=== PATIENT | female | born 1985 | race Two or more races ===

== ENCOUNTER 2024-08-07 09:26 | Emergency (ER) | payer MEDICAID, SELFPAY ==
[2024-08-07 09:41] VITALS: BP 144/89; PULSE 74; RESP 18; TEMP 37.1; O2SAT 96; BMI 35.8
[2024-08-07] MEDS: KETOROLAC INJ 30 MG/ML VIAL IM (10:17)
--- NOTE | 2024-08-07 12:49 | PD.EDEXREM ---
ED Extremity Problem RME/HPI General Chief complaint: Extremity Problem,Nontraumatic Stated complaint: LEFT LEG, HIP, KNEE PAIN WORSEN X 1 WK; SEEN PCP Time Seen by Provider: 08/07/24 09:30 Arrival date/time: 08/07/24 09:26 39-year-old female presents to the emergency department complaints of left leg pain patient reports pain starts in her left hip and radiates down her left leg patient reports typically she takes naproxen but ran out of her medication patient reports no fever nausea or vomiting no saddle anesthesia no loss of bowel or bladder no chance of Limitations: no limitations Related Data Home Medications ?Medication ?Instructions ?Recorded ?Confirmed citalopram 40 mg tablet (Celexa) 40 mg PO QDAY #0 tabs 08/20/17 05/10/22 trazodone 100 mg tablet 100 mg PO HS 05/10/22 05/10/22 Previous Rx's ?Medication ?Instructions ?Recorded naproxen 500 mg tablet (Naprosyn) 500 mg PO BID #14 tabs 05/10/22 phenazopyridine 95 mg tablet (Azo 95 mg PO TID PRN pain 6 doses #6 05/10/22 Urinary Pain Relief) tabs benzonatate 100 mg capsule 100 mg PO TID #14 caps 02/02/24 ibuprofen 600 mg tablet 600 mg PO Q6H #30 tabs 02/02/24 cyclobenzaprine 10 mg tablet 10 mg PO TID PRN muscle spasm 10 08/07/24 days #30 tab-caps naproxen 500 mg tablet 500 mg PO BID PRN pain #30 tabs 08/07/24 Allergies Allergy/AdvReac Type Severity Reaction Status Date / Time NKA* Allergy Uncoded 08/07/24 09:29 Review of Systems Review of Systems Systems Reviewed: All systems reviewed, normal except as documented Constitutional Constitutional: Reports system reviewed and no additional complaints, except as documented, Denies fever(s) and Denies headache(s) Eyes Eyes: Reports system reviewed and no additional complaints, except as documented and Denies blurry vision ENT Ears, Nose, Mouth, and Throat: Reports system reviewed and no additional complaints, except as documented, Denies headache(s), Denies nasal congestion and Denies nasal discharge Cardiovascular Cardiovascular: Reports system reviewed and no additional complaints, except as documented, Denies chest pain and Denies dyspnea Respiratory Respiratory: Reports system reviewed and no additional complaints, except as documented, Denies chest congestion, Denies cough and Denies dyspnea Gastrointestinal Gastrointestinal: Reports system reviewed and no additional complaints, except as documented and Denies abdominal pain Musculoskeletal Musculoskeletal: Reports system reviewed and no additional complaints, except as documented, Denies abnormal gait, Denies arthralgias, Reports back pain, Reports radiating pain into limb, Reports stiffness and Denies tingling Integumentary/Breasts Skin/Breast: Reports system reviewed and no additional complaints, except as documented and Denies rash Neurologic Neurologic: Reports system reviewed and no additional complaints, except as documented, Reports as per HPI, Denies abnormal gait, Denies headache(s) and Denies tingling Past Medical History Past Medical History CARDIAC: Negative Congestive Heart Failure RESPIRATORY: Negative Chronic Obstructive Pulmonary Disease (COPD) GENITOURINARY: Negative Renal Disease ENDOCRINE: Negative Diabetes Mellitus Type 1 or Diabetes Mellitus Type 2 OTHER HISTORY: Negative Blood Transfusions Social History SMOKING STATUS: Never smoker ED Exam General Limitations: Present no limitations General appearance: Present alert and in no apparent distress Head Head exam: Present atraumatic, normocephalic and normal inspection Eye Eye exam: Present normal appearance, PERRL and EOMI ENT ENT exam: Present normal exam, normal oropharynx and mucous membranes moist Neck Neck exam: Present normal inspection, full ROM and trachea midline Chest Chest inspection: Present normal inspection and symmetric chest wall rise Respiratory Respiratory exam: Present normal lung sounds bilaterally Cardiovascular Cardiovascular exam: Present regular rate, normal rhythm and normal heart sounds Abdominal Exam Abdominal exam: Present soft and normal bowel sounds Extremities Exam Extremities exam: Present full ROM, tenderness and normal capillary refill; Absent joint swelling Back Exam Back exam: Present normal inspection and full ROM Neurological Exam Neurological exam: Present alert, oriented X3, CN II-XII intact, normal gait and reflexes normal; Absent motor sensory deficit Psychiatric Psychiatric exam: Present normal affect and normal mood Skin Skin exam: Present warm, dry, intact and normal color; Absent rash Course Quality Measures none Orders Category Date Time Status Ketorolac Inj [Toradol Inj] Med 08/07/24 10:07 Discontinued 30 mg IM X1 ONE Vital Signs Vital signs: Vital Signs Temperature 98.8 F 08/07/24 09:41 Pulse Rate 74 08/07/24 09:41 Respiratory Rate 18 08/07/24 09:41 Blood Pressure 144/89 H 08/07/24 09:41 Pulse Oximetry (%) 96 08/07/24 09:41 Oxygen Delivery Method Room Air 08/07/24 09:41 O2 saturation 96% room air within normal limits Extremity Problem MDM Narrative [facility] Narrative:: 39-year-old female presents to the emergency department complaints of left leg pain patient reports pain starts in her left hip and radiates down her left leg patient reports typically she takes naproxen but ran out of her medication patient reports no fever nausea or vomiting no saddle anesthesia no loss of bowel or bladder no chance of Patient medicated for pain Symptoms highly consistent with sciatica Patient discharged home in no distress to follow-up with primary care doctor in the next 24 to 48 hours and for any worsening symptoms to return to the ER immediately Patient data External records reviewed:: [facility] previous records Clinical information provided by:: patient Social determinants that could affect healthcare access:: none Patient has the following chronic illnesses:: See history How is presenting disease/condition affected by chronic disease/condition?: caused by Evaluation data The following diagnostics were reviewed and interpreted by me:: other (specify) (N/A) Lab and/or radiology exams considered but not ordered:: Consider not indicated Interpretation Summary: N/A Medications / Prescriptions Medications or Prescriptions considered but not ordered:: Given Medication administrations:: Medication Administration History Discontinued Medications Ketorolac Tromethamine (Ketorolac Inj 30 Mg/Ml Vial) 30 mg IM X1 ONE Stop: 08/07/24 10:08 Last Admin: 08/07/24 10:17 Dose: 30 mg Documented By: RD Given Consultations Consultation(s) initiated? (list below): No Diagnosis Extremity Problem Differential Diagnosis: other (Sciatica, back pain, leg pain) Most likely diagnosis given after review of the tests above:: Sciatica Admission Indicated Admission indicated?: not indicated Admission Request Was there a request for admission?: No Disposition Plan Disposition Plan: Discharge Discharge Attestation Discharge Attestation: The patient and all family members were given an opportunity to ask questions and understood the discharge instructions. Discharge instructions specifically effects, indications for sooner follow up or return to the emergency department, and the expected course of current diagnosis. Patient condition: Stable Discharge Plan Plan Patient Disposition: HOME (Self Care) Disposition Comment: Stable Prescriptions/Referrals Prescriptions/Med Rec: New cyclobenzaprine 10 mg tablet 10 mg PO TID PRN (Reason: muscle spasm) 10 Days Qty: 30 0RF naproxen 500 mg tablet 500 mg PO BID PRN (Reason: pain) Qty: 30 0RF No Action citalopram [Celexa] 40 MG tablet 40 mg PO QDAY Qty: 0 trazodone 100 mg tablet 100 mg PO HS Patient Comments: TAKE 1 TABLET BY MOUTH ONCE DAILY AT BEDTIME phenazopyridine [Azo Urinary Pain Relief] 95 mg tablet 95 mg PO TID PRN (Reason: pain) Qty: 6 0RF naproxen [Naprosyn] 500 mg tablet 500 mg PO BID Qty: 14 0RF benzonatate 100 mg capsule 100 mg PO TID Qty: 14 0RF ibuprofen 600 mg tablet 600 mg PO Q6H Qty: 30 0RF Problem List Clinical Impression: Left sided sciatica Patient/Caregiver Discharge Instructions Education Materials: ED Sciatica Additional Instructions: Please follow-up department care doctor as discussed worsening symptoms return immediately Print Language: Moroccan Stand Alone Forms: Elizabeth Award Info., Work/School Release, Patient Portal Info Letter PA/BEEHIVE KILN SUPERVISOR Supervising Physician PA/BEEHIVE KILN SUPERVISOR Supervising Physician: Dr. Salamanca
== END 2024-08-07 10:22 | disposition home or self-care (01) ==
LOC: SERX 10:27
PROVIDERS: Emergency Provider Emergency Medicine; PCP Family Medicine
DX: M54.32 Sciatica, left side (principal); Z91.148 Patient's other noncompliance with medication regimen for other reason
CPT/HCPCS: 96372; 99283; J1885

== ENCOUNTER 2024-09-19 16:00 | Emergency (ER) | payer MEDICAID, SELFPAY ==
[2024-09-19 16:28] VITALS: BP 115/80; PULSE 106; RESP 18; TEMP 37.2; O2SAT 95; BMI 35.2
--- NOTE | 2024-09-19 16:42 | XR_ITS ---
Examination: CT abdomen and pelvis without contrast. Coronal 3-D reconstructions. Sagittal 2-D reconstructions. Date and time of exam:September 19, 2024 at 1752 hrs. Indications: Right-sided abdominal pain with vomiting today CTDI: vol (mGy): 11.3 DLP: (mGycm): 570 Technique: Axial images of the abdomen have been obtained, 3 mm slice thickness Intravenous contrast material has not been administered. Low dose protocols were performed. One or more of the following dose reduction techniques were used; automated exposure control, adjustment of the mA and/or KV according to patient size, use of iterative reconstruction technique. Findings: No focal liver or splenic lesions Absent gallbladder No pancreatic mass or edema 1 mm adjacent 1 mm lower pole right renal calculi coronal image 95 Aorta normal size Normal appendix No bowel obstruction No diverticulitis Contracted urinary bladder Anteverted uterus with significantly dilated endometrial stripe Advanced degenerative disc disease L5-S1 Impression: Tiny nonobstructing right renal calculi Normal appendix Advanced degenerative disc disease L5-S1 Significantly thickened endometrial stripe, at least 19 mm, consider pelvic sonography follow-up
--- NOTE | 2024-09-19 16:43 | PD.EDRME ---
Rapid Medical Screening Exam RME Arrival date/time: 09/19/24 16:00 39-year-old female with no known medical history presents to the emergency room with a chief complaint of 8 out of 10 epigastric pain x 2 days I have greeted and performed a focused initial assessment of this patient. A comprehensive ED assessment and evaluation of the patient, analysis of all test results, and completion of the medical decision making process will be conducted by additional ED providers. Chief Complaint: Abdominal Pain Vital signs: Vital Signs Temperature 99 F 09/19/24 16:28 Pulse Rate 106 H 09/19/24 16:28 Respiratory Rate 18 09/19/24 16:28 Blood Pressure 115/80 09/19/24 16:28 Pulse Oximetry (%) 95 09/19/24 16:28 Oxygen Delivery Method Room Air 09/19/24 16:28 Vital signs reviewed by provider: Yes
[2024-09-19 17:08] LABS: Basophils % (Auto) 0 % (0-2.5); Eosinophils % (Auto) 0 % (0-10); Hematocrit 36.9 % (36.0-46.0); Hemoglobin 12.5 g/dL (12.0-16.0); Immature Granulocytes % (Auto) 0 % (0-0); Immature Granulocytes Auto 0.01 Thou/mm3 (0.00-0.00); Lymphocytes # (Auto) 0.4 Thou/mm3 (1.0-4.8); Lymphocytes % (Auto) 5 % (10-50); Mean Corpuscular HGB Conc 33.9 g/dl (31.0-37.0); Mean Corpuscular Volume 80 fL (80-100); Monocytes # (Auto) 0.4 Thou/mm3 (0.0-0.8); Monocytes % (Auto) 5 % (0-12); Neutrophils # (Auto) 6.9 Thou/mm3 (1.8-7.7); Neutrophils % (Auto) 89 % (37-80); Nucleated Red Blood Cell % 0 /100 WBC (0); Platelet Count 243 Thou/mm3 (140-440); RDW Standard Deviation 39.8 fL (36.4-46.3); Red Blood Count 4.63 Miln/mm3 (4.00-5.20); White Blood Count 7.7 Thou/mm3 (3.6-11.0)
[2024-09-19] MEDS: MG HYD/AL HYD/SIME (Maalox Reg) SUSP 30 ML UDC PO ×2 (17:14→19:27)
[2024-09-19 17:20] LABS: Collection Type, Urine Clean Catch
[2024-09-19 17:23] LABS: Alanine Aminotransferase 17 U/L (10-49); Albumin, Serum 4.5 gm/dL (3.5-5.0); Albumin/Globulin Ratio 1.8 (1.2-2.2); Alkaline Phosphatase 59 U/L (46-116); Anion Gap 10 (7-16); Aspartate Amino Transferase 17 U/L (0-34); BUN/Creatinine Ratio 30 Ratio (12-20); Bilirubin,Total 0.9 mg/dL (0.3-1.2); Blood Urea Nitrogen 15 mg/dL (9-23); Calcium 9.4 mg/dL (8.3-10.6); Calcium (Corrected) 9.4 mg/dL (8.5-10.1); Chloride 106 mMol/L (98-107); Creatinine (Component) 0.5 mg/dL (0.6-1.3); Estimated Creatinine Clearance 157.8 mL/min (>60); Globulin 2.5 gm/dL (2.3-3.5); Glucose 116 mg/dL (74-106); Lipase 24 U/L (12-53); Osmolality,Calculated 279 (275-295); Potassium 3.6 mMol/L (3.4-5.1); Sodium 139 mMol/L (136-145); eGFR > 60 See Note
[2024-09-19 17:33] LABS: Bacteria,Urine Rare; Bilirubin,Urine Negative (Negative); Blood,Urine Negative (Negative); Clarity,Urine Turbid (Clear/Hazy); Color,Urine Yellow (Lt Yel-Yel); Glucose, Urine Negative (Negative); HCG Qualitative,Urine Negative; Ketones,Urine 2+ (Negative); Leukocyte Esterase,Urine Negative (Negative); Nitrite,Urine Negative (Negative); PH,Urine 6.5 (5.0-7.0); Protein,Urine 1+ (Neg - Trace); RBC,Urine 1 /hpf (0-3); Specific Gravity,Urine 1.032 (1.001-1.035); Squamous Epithelial Cell,Urine 13 /hpf (0-5); Urobilinogen,Urine Negative mg/dL (0.0-1.0); WBC,Urine 1 /hpf (0-5)
[2024-09-19 19:14] VITALS: BP 117/81; PULSE 99; RESP 16; TEMP 36.9; O2SAT 99
--- NOTE | 2024-09-19 19:19 | EDNOTE_ITS ---
<Statement entered by Melissa Ayala MD - 09/21/24 01:47> As co-signing physician, I was present and available for consult prn. I concur with the plan and care as documented by the midlevel provider. ED General RME/HPI General Chief complaint: Abdominal Pain Stated complaint: RIGHT ABD PAIN WITH VOMITING X 7 DAYS Time Seen by Provider: 09/19/24 19:49 Arrival date/time: 09/19/24 16:00 CC: Epigastric pain HPI ongoing for the past 3 to 4 days with nausea and vomiting currently nauseated. Denies any diarrhea. Prior history of similar events at that time the patient had a cholecystectomy. Denies chest pain shortness of breath difficulty breathing or fever. Localized pain is 8 on a 10 scale. However the patient is active upright speaking in full sentences not writhing with stable vital signs. RME / HPI RME / HPI narrative: 09/19/24 16:00 39-year-old female with no known medical history presents to the emergency room with a chief complaint of 8 out of 10 epigastric pain x 2 days I have greeted and performed a focused initial assessment of this patient. A comprehensive ED assessment and evaluation of the patient, analysis of all test results, and completion of the medical decision making process will be conducted by additional ED providers. Related Data Home Medications ?Medication ?Instructions ?Recorded ?Confirmed citalopram 40 mg tablet (Celexa) 40 mg PO QDAY #0 tabs 08/20/17 05/10/22 trazodone 100 mg tablet 100 mg PO HS 05/10/22 Previous Rx's ?Medication ?Instructions ?Recorded naproxen 500 mg tablet (Naprosyn) 500 mg PO BID #14 ta bs 05/10/22 phenazopyridine 95 mg tablet (Azo 95 mg PO TID PRN ad n 6 doses #6 05/10/22 Urinary Pain Relief) tabs benzonatate 100 mg capsule 100 mg PO TID #14 caps 03/20 ibuprofen 600 mg tablet 600 mg PO Q6H #30 tabs 02/01 naproxen 500 mg tablet 500 mg PO BID PRN pain #30 t abs 08/07/24 pantoprazole 40 mg tablet,delayed 40 mg PO QDAY #30 ta bs 09/19/24 release (Protonix) Allergies Allergy/AdvReac Type Severity Reaction Status Date / Time NKA* Allergy Uncoded 09/19/24 16:03 Review of Systems Review of Systems Narrative Review of Systems: GEN: No fever, no chills, no weight loss EYES: No discharge, no visual changes, no pain HEENT: No ear pain, no congestion, no sore throat PULM: No shortness of breath, no cough, no congestion CV: No chest pain, no dyspnea on exertion, no palpitations GI: No nausea, no vomiting, no diarrhea, + pain, no constipation : No frequency, no urgency, no dysuria MUSC/SKEL: No joint pain, no back pain SKIN: No rash PSYCH: No hallucinations, no depression HEME/LYMPH: No easy bleeding or bruising tendencies NEURO: No weakness, no headache Past Medical History Past Medical History CARDIAC: Negative Congestive Heart Failure RESPIRATORY: Negative Chronic Obstructive Pulmonary Disease (COPD) GENITOURINARY: Negative Renal Disease ENDOCRINE: Negative Diabetes Mellitus Type 1 or Diabetes Mellitus Type 2 OTHER HISTORY: Negative Blood Transfusions Social History SMOKING STATUS: Never smoker ED Exam Narrative Physical exam: [General: Obese not in any acute distress Head normocephalic HEENT: Within acceptable limits Neck is supple nontender Chest equal chest rise nontender to palpation Respiratory: Clear to auscultation no wheezes crackles or rubs CV: Rate rhythm is regular no murmurs rubs or clicks Abdomen is distended secondary to body habitus soft epigastric tenderness with palpation no reflexive guarding rebound tenderness no tenderness to the pannus, or lower quadrants of the abdomen. Back: No CVA tenderness no spinous process tenderness from cervical spine thoracic and lumbar spine Skin: Intact no petechiae rash induration ulceration or crepitus Extremities: Moving all extremity against resistance cap refill less than 2 seconds neurosensory intact Neuro: Awake alert oriented x3 Glascow coma 15 no focal deficits] Course Quality Measures none Orders Category Date Time Status CT abdomen pelvis wo con Stat Exams 09/19/24 16:42 Completed CBC Stat Lab 09/19/24 16:52 Completed CMP [Comprehensive Metabolic Panel] Stat Lab 09/19/24 16:52 Completed HCG Qualitative,Urine Stat Lab 09/19/24 17:16 Completed Lipase Stat Lab 09/19/24 16:52 Completed UA [Urinalysis] Stat Lab 09/19/24 17:16 Completed Urine Culture Stat Lab 09/19/24 17:16 Received Lidocaine 2% Viscous [Xylocaine 2% Viscous] Med 09/19/24 19:19 Discontinued 15 ml PO X1 ONE Ondansetron Odt [Zofran Odt] Med 09/19/24 19:19 Discontinued 4 mg PO X1 ONE mg Hyd/Al Hyd/Marissa Susp [Maalox Susp] Med 09/19/24 16:42 Discontinued 30 ml PO X1 ONE mg Hyd/Al Hyd/Marissa Susp [Maalox Susp] Med 09/19/24 19:19 Discontinued 30 ml PO X1 ONE Vital Signs Vital signs: Vital Signs Temperature 99 F 09/19/24 16:28 Pulse Rate 106 H 09/19/24 16:28 Respiratory Rate 18 09/19/24 16:28 Blood Pressure 115/80 09/19/24 16:28 Pulse Oximetry (%) 95 09/19/24 16:28 Oxygen Delivery Method Room Air 09/19/24 16:28 [facility] Patient data External records reviewed:: [facility] previous records Clinical information provided by:: patient Social determinants that could affect healthcare access:: none Patient has the following chronic illnesses:: None How is presenting disease/condition affected by chronic disease/condition?: u neffected by Evaluation data The following diagnostics were reviewed and interpreted by me:: lab results and radiology exam(s) Lab and/or radiology exams considered but not ordered:: CBC shows no acute leukocytosis anemia thrombocytopenia CMP shows no acute electrolyte imbalances renal impairment transaminitis or T. bili elevation. Lipase is 24. Urine 1+ protein 1-2+ ketones 13 squamous epithelial. Interpretation Summary: Based on the clinical presentation and laboratories also suspect this is rare acid reflux. Improvement with oral medications given. Discharge the patient with acid reflux Medications Medications considered but not ordered:: None Medication administrations:: Medication Administration History Discontinued Medications Al Hydrox/Mg Hydrox/Simethicone (Mg Hyd/Al Hyd/Marissa (Maalox Reg) Susp 30 Ml Udc) 30 ml PO X1 ONE Stop: 09/19/24 16:43 Last Admin: 09/19/24 17:14 Dose: 30 ml Documented By: SUSY Al Hydrox/Mg Hydrox/Simethicone (Mg Hyd/Al Hyd/Marissa (Maalox Reg) Susp 30 Ml Udc) 30 ml PO X1 ONE Stop: 09/19/24 19:20 Last Admin: 09/19/24 19:27 Dose: 30 ml Documented By: CVL Lidocaine HCl (Lidocaine Viscous 2% 15 Ml Udc) 15 ml PO X1 ONE Stop: 09/19/24 19:20 Last Admin: 09/19/24 19:27 Dose: 15 ml Documented By: CVL Ondansetron HCl (Ondansetron Odt 4 Mg Tabrap) 4 mg PO X1 ONE; Protocol Stop: 09/19/24 19:20 Last Admin: 09/19/24 19:27 Dose: 4 mg Documented By: CVL None Consultations Consultation(s) initiated? (list below): No Diagnosis Differential Diagnosis ED Complaint MDM: Acid reflux gastritis cholelithiasis pancreatitis Most likely diagnosis given after review of the tests above:: Acid reflux Admission Indicated Admission indicated?: not indicated Explain why admission is indicated or not indicated:: Stable for discharge Admission Request Was there a request for admission?: No Disposition Plan Disposition Plan: Discharge Discharge Attestation Discharge Attestation: The patient and all family members were given an opportunity to ask questions and understood the discharge instructions. Discharge instructions specifically effects, indications for sooner follow up or return to the emergency department, and the expected course of current diagnosis. Patient condition: Stable Medical Decision Making Differential Diagnosis Differential Diagnosis: Acid reflux gastritis cholelithiasis pancreatitis Lab Data 09/19/24 16:52 09/19/24 16:52 Labs: Lab Results 09/19/24 09/19/24 Range/Units 16:52 17:16 WBC 7.7 (3.6-11.0) Thou/mm3 RBC 4.63 (4.00-5.20) Miln/mm3 Hgb 12.5 (12.0-16.0) g/dL Hct 36.9 (36.0-46.0) % MCV 80 (80-100) fL MCH 27.0 (25.0-35.0) pg MCHC 33.9 (31.0-37.0) g/dl RDW Std Deviation 39.8 (36.4-46.3) fL Plt Count 243 (140-440) Thou/mm3 Neut % (Auto) 89 H (37-80) % Lymph % (Auto) 5 L (10-50) % [place] % (Auto) 5 (0-12) % Eos % (Auto) 0 (0-10) % Baso % (Auto) 0 (0-2.5) % Neut # (Auto) 6.9 (1.8-7.7) Thou/mm3 Lymph # (Auto) 0.4 L (1.0-4.8) Thou/mm3 [place] # (Auto) 0.4 (0.0-0.8) Thou/mm3 Eos # (Auto) 0.0 (0.0-0.5) Thou/mm3 Baso # (Auto) 0.0 (0.0-0.2) Thou/mm3 Immature Gran # (Auto) 0.01 H (0.00-0.00) Thou/mm3 Absolute Nucleated RBC 0.00 (0.00-0.00) Thou/mm3 Immature Gran % 0 (0-0) % Nucleated RBC % 0 (0) /100 WBC Sodium 139 (136-145) mMol/L Potassium 3.6 (3.4-5.1) mMol/L Chloride 106 (98-107) mMol/L Carbon Dioxide 23.0 (20.0-31.0) mMol/L Anion Gap 10 (7-16) BUN 15 (9-23) mg/dL Creatinine 0.5 L (0.6-1.3) mg/dL Estim Creat Clear Calc 157.8 (>60) mL/min eGFR > 60 (60 - ) See Note BUN/Creatinine Ratio 30 H (12-20) Ratio Glucose 116 H (74-106) mg/dL Calculated Osmolality 279 (275-295) Calcium 9.4 (8.3-10.6) mg/dL Corrected Calcium 9.4 (8.5-10.1) mg/dL Total Bilirubin 0.9 (0.3-1.2) mg/dL AST 17 (0-34) U/L ALT 17 (10-49) U/L Alkaline Phosphatase 59 (46-116) U/L Total Protein 7.0 (5.7-8.2) gm/dL Albumin 4.5 (3.5-5.0) gm/dL Globulin 2.5 (2.3-3.5) gm/dL Albumin/Globulin Ratio 1.8 (1.2-2.2) Lipase 24 (12-53) U/L Ur Collection Type Clean Catch Urine Color Yellow (Lt Yel-Yel) Urine Clarity Turbid A (Clear/Hazy) Urine pH 6.5 (5.0-7.0) Ur Specific [place] 1.032 (1.001-1.035) Urine Protein 1+ A (Neg - Trace) Urine Glucose (UA) Negative (Negative) Urine Ketones 2+ A (Negative) Urine Blood Negative (Negative) Urine Nitrite Negative (Negative) Urine Bilirubin Negative (Negative) Urine Urobilinogen (Auto) Negative (0.0-1.0) mg/dL Ur Leukocyte Esterase Negative (Negative) Urine RBC 1 (0-3) /hpf Urine WBC 1 (0-5) /hpf Ur Squamous Epith Cells 13 H (0-5) /hpf Urine Bacteria Rare (None) Urine HCG, Qual Negative Discharge Plan Plan Patient Disposition: HOME (Self Care) Patient condition on transfer: Stable Prescriptions/Referrals Prescriptions/Med Rec: New pantoprazole [Protonix] 40 mg tablet,delayed release (DR/EC) 40 mg PO QDAY Qty: 30 1RF No Action citalopram [Celexa] 40 MG tablet 40 mg PO QDAY Qty: 0 trazodone 100 mg tablet 100 mg PO HS Patient Comments: TAKE 1 TABLET BY MOUTH ONCE DAILY AT BEDTIME phenazopyridine [Azo Urinary Pain Relief] 95 mg tablet 95 mg PO TID PRN (Reason: pain) Qty: 6 0RF naproxen [Naprosyn] 500 mg tablet 500 mg PO BID Qty: 14 0RF benzonatate 100 mg capsule 100 mg PO TID Qty: 14 0RF ibuprofen 600 mg tablet 600 mg PO Q6H Qty: 30 0RF naproxen 500 mg tablet 500 mg PO BID PRN (Reason: pain) Qty: 30 0RF Referrals: No Primary/Family,Physician [Primary Care Provider] - In 1 week Problem List Clinical Impression: Acid reflux Patient/Caregiver Discharge Instructions Other Activity Instructions:: Avoid all greasy spicy fatty foods for the next 2 weeks do not eat any foods for 2 hours before you go to bed take the medication as prescribed stick to a bland diet if there is a worsening of symptoms return the emergency room medially for further evaluation. Education Materials: Medicines for Acid Reflux, ED Diet, [place] (Adult) Print Language: Bulgarian Stand Alone Forms: Elizabeth Award Info., Patient Portal Info Letter, Work/School Release PA/AUTOGLAZIER Supervising Physician PA/AUTOGLAZIER Supervising Physician: Brett Walter ENP
[2024-09-19] MEDS: ONDANSETRON ODT 4 MG TABRAP PO (19:27)
[2024-09-19] MEDS: LIDOCAINE VISCOUS 2% 15 ML UDC PO (19:27)
[2024-09-19 20:23] VITALS: RESP 18
== END 2024-09-19 20:25 | disposition home or self-care (01) ==
PROVIDERS: Nurse Practitioner Family; Emergency Provider Emergency Medicine
DX: K21.9 Gastro-esophageal reflux disease without esophagitis (principal)
CPT/HCPCS: 36415; 74176; 80053; 81001; 81025; 83690; 85025; 87086; 99284; J3490; Q0162; A9270

== ENCOUNTER 2024-12-07 14:39 | Outpatient (RCR) | payer MEDICAID, SELFPAY ==
--- NOTE | 2024-12-07 14:57 | PT.OIERPT ---
PT OP Initial Eval Patient Information Outpatient Physical Therapy Treatment Date: 12/07/24 Visit Reasons: Lower back/Muscle spasms Medical Diagnosis: M62.838 Start of Care: 12/07/24 Date of Onset: 5 yrs ago Smoking Status Smoking Status: Never smoker Initial Assessment Subjective: Pt is 39 yr old german speaking female who c/o LBP that runs down the L LE x5 yrs. The pain is daily and the LE pain is variable but constant. This limits HH chore tolerance such as mopping and sweeping and she is unable to lift heavy things. PMH: anxiety/depression Imaging: CT of abdomen Advanced degenerative disc disease L5-S1 Pt goal: to get rid of the pain Objective: ?Trunk ArOM: ? B SB 50% of normal with pain to the L ? Extension: 20% with pain around L4-5, L5-S1 ? Flexion: 10 from floor with LBP ? B rotation: 60% with pain ? TTP: moderate paraspinals L5-S1 ? Neuro: L SLR: positive Assessment: Pt presentation consistent with CT that reveals advanced DDD of L5-S1 and it looks like that segment is bone on bone on the sagittal view which would account for the L LE radiculopathy secondary to possible neuroforaminal stenosis. Pt not likely going to benefit from skilled therapy and has poor rehab potential to meet goals since she will likely have more pain with therapy interventions. PT recommends further diagnostic imaging of lumbar spine and orthopedic consultation. Short Term and Longterm Goals Eval and D/C Treatment Plan Eval and D/C Certification Dates: 12/07/24 to 03/08/25 Procedure Charges OP PT Eval Mod Complex 30 minutes: Yes
== END 2024-12-25 23:59 | disposition home or self-care (01) ==
LOC: CPTX 14:39
PROVIDERS: PCP Family Medicine; Referring Provider Family Medicine; Visit Provider Family Medicine
DX: M51.16 Intervertebral disc disorders with radiculopathy, lumbar region (principal); M62.838 Other muscle spasm
CPT/HCPCS: 97162